=== PATIENT | female | born 1965 | race Hispanic/Latino ===

== ENCOUNTER 2020-11-17 01:31 | Emergency (ER) | payer BC ==
[2020-11-17] MEDS ORDERED: AZITHROMYCIN/NS 500 MG/250 ML 500 MG/250 ML BAG IV ONE (01:52)
[2020-11-17] MEDS ORDERED: dexAMETHasone 4 MG/ML VIAL IV ONE (01:53)
[2020-11-17] MEDS ORDERED: cefTRIAXone/NS 2 GM/100 ML 2 GM/100 ML BAG IV ONE (01:53)
--- NOTE | 2020-11-17 01:56 | Emergency Department Report ---
ED Shortness of Breath HPI - General Chief Complaint: Dyspnea/Respdistress Stated Complaint: DIFFICULTY BREATHING Time Seen by Provider: 11/17/20 01:40 Source: patient Mode of arrival: Ambulatory Limitations: No Limitations - History of Present Illness Initial Comments: Patient is a 55-year-old female that presents emergency room with complaints of shortness of breath and cough. Patient states her cough started 1 to 2 days ago. Patient states her shortness of breath started just prior to arrival. Patient states she was sleeping and she woke up short of breath. Patient states she does have a history of asthma, CHF or COPD. Patient states she has a past medical history of hypertension, hyperlipidemia and borderline diabetes. Patient states that her shortness of breath better with rest and worse with exertion. Patient denies fever. Patient states her cough is dry. Patient denies chills. Patient denies nausea and vomiting. Patient denies diarrhea. Patient states she is not vaccinated against COVID-19. Patient denies recent travel. Patient denies recent international travel. Patient denies exposure to the novel coronavirus. Patient denies sick contacts. Patient denies fever and chills. Patient denies loss of smell.. Patient denies diarrhea. Patient denies coming in contact with anybody with symptoms of the novel coronavirus. MD Complaint: shortness of breath, cough -: Sudden Consistency: constant Improves With: rest Worsens With: exertion Associated Symptoms: cough Treatments Prior to Arrival: none - Related Data Home Oxygen Therapy: No Home Medications Medication Instructions Recorded Confirmed Last Taken AtorvaSTATin [Lipitor] 40 mg PO QHS 11/17/20 11/17/20 Unknown Levothyroxine [Synthroid] 25 mcg PO QAM 11/17/20 11/17/20 Unknown Metoprolol [Lopressor] 25 mg PO BID 11/17/20 11/17/20 Unknown lisinopriL [Lisinopril] 10 mg PO QDAY 11/17/20 11/17/20 Unknown Allergies Allergy/AdvReac Type Severity Reaction Status Date / Time No Known Allergies Allergy Unverified 11/17/20 01:40 ED Review of Systems ROS: Stated complaint: DIFFICULTY BREATHING Other details as noted in HPI Constitutional: denies: chills, fever Eyes: denies: eye pain, eye discharge, vision change ENT: denies: ear pain, throat pain Respiratory: see HPI, cough, shortness of breath. denies: wheezing Cardiovascular: denies: chest pain, palpitations Endocrine: no symptoms reported Gastrointestinal: denies: abdominal pain, nausea, diarrhea Genitourinary: denies: urgency, dysuria, discharge Musculoskeletal: denies: back pain, joint swelling, arthralgia Skin: denies: rash, lesions Neurological: denies: headache, weakness, paresthesias Psychiatric: denies: anxiety, depression Hematological/Lymphatic: denies: easy bleeding, easy bruising ED Past Medical Hx - Past Medical History Previous Medical History?: Yes Hx Hypertension: Yes Additional medical history: Borderline diabetes, hyperlipidemia - Surgical History Past Surgical History?: Yes Additional Surgical History: appendectomy, thyroidectomy, back sx - Family History Family history: no significant - Social History Smoking Status: Never Smoker Substance Use Type: None - Medications Home Medications: Home Medications Medication Instructions Recorded Confirmed Last Taken Type AtorvaSTATin [Lipitor] 40 mg PO QHS 11/17/20 11/17/20 Unknown History Levothyroxine [Synthroid] 25 mcg PO QAM 11/17/20 11/17/20 Unknown History Metoprolol [Lopressor] 25 mg PO BID 11/17/20 11/17/20 Unknown History lisinopriL [Lisinopril] 10 mg PO QDAY 11/17/20 11/17/20 Unknown History ED Physical Exam - General Limitations: No Limitations General appearance: alert, in distress, obese - Head Head exam: Present: atraumatic, normocephalic - Eye Eye exam: Present: normal appearance - ENT ENT exam: Present: mucous membranes dry - Neck Neck exam: Present: normal inspection - Respiratory Respiratory exam: Present: respiratory distress, rhonchi, accessory muscle use, decreased breath sounds - Cardiovascular Cardiovascular Exam: Present: regular rate, normal rhythm. Absent: systolic murmur, diastolic murmur, rubs, gallop - GI/Abdominal GI/Abdominal exam: Present: soft, normal bowel sounds - Extremities Exam Extremities exam: Present: normal inspection - Back Exam Back exam: Present: normal inspection - Neurological Exam Neurological exam: Present: alert, oriented X3 - Psychiatric Psychiatric exam: Present: normal affect, normal mood - Skin Skin exam: Present: warm, dry, intact, normal color. Absent: rash ED Course Vital Signs 11/17/20 11/17/20 11/17/20 01:39 01:54 02:01 Temperature 98.6 F Pulse Rate 95 H 94 H Respiratory 32 H 19 Rate Blood Pressure 165/79 Blood Pressure 234/107 [Right] O2 Sat by Pulse 79 L 96 98 Oximetry 11/17/20 11/17/20 11/17/20 02:08 02:15 02:31 Temperature Pulse Rate 92 H 91 H 90 Respiratory 38 H 27 H 30 H Rate Blood Pressure 165/79 165/79 165/79 Blood Pressure [Right] O2 Sat by Pulse 98 98 98 Oximetry 11/17/20 11/17/20 02:45 03:01 Temperature Pulse Rate 92 H 86 Respiratory 21 27 H Rate Blood Pressure 165/79 117/58 Blood Pressure [Right] O2 Sat by Pulse 96 98 Oximetry - Reevaluation(s) Reevaluation #1: Initial evaluation done. Patient have increased work of breathing. Patient will be given Decadron, Rocephin and Zithromax. Patient is hypoxic. Patient will be placed on BiPAP. 11/17/20 01:55 Reevaluation #2: Patient on BiPAP. Patient saturations improved. Patient's work to breathe. 11/17/20 02:28 Reevaluation #3: I discussed all results with patient. I discussed plan of care with patient. Patient agrees with plan of care and admission. Patient to be admitted to the hospitalist service. 11/17/20 03:29 - Consultations Consultation #1: Hospitalist consulted for admission. Hospitalist to admit patient. 11/17/20 03:29 ED Medical Decision Making - Lab Data Result diagrams: 11/17/20 01:57 11/17/20 01:57 - Radiology Data Radiology results: report reviewed, image reviewed interpreted by me: Chest x-ray: Bilateral interstitial, atypical pneumonia, no pneumothorax, no foreign body, no osseous findings, CHEST 1 VIEW INDICATION: Dyspnea. COMPARISON: None FINDINGS: SUPPORT DEVICES: None. HEART: Within normal limits. LUNGS/PLEURA: Hazy diffuse interstitial disease with symmetry most likely representing at least a component of edema. No gross effusion. ADDITIONAL FINDINGS: None. IMPRESSION: 1. Pulmonary findings as above. - Medical Decision Making Patient is a 55-year-old female presents emergency room and cough. Patient unvaccinated. Patient had abnormal lung sounds on exam. Patient had a chest x-ray which shows atypical pneumonia. Patient given Decadron, Rocephin and Zithromax. Patient had labs done which were essentially unremarkable except for lactic acidosis. Patient after initial valuation, was placed on BiPAP. Patient responded well to BiPAP. Patient had increased work of breathing with her initial evaluation but the BiPAP proved that. Patient admitted to the hospital service for further evaluation and treatment. Critical care time documented due to the multiple reassessments, prolonged time at the bedside, interpretation of diagnostics and labs. - Differential Diagnosis Covid, PUI, pneumonia, SoB, respiratory failure Critical Care Time: Yes Critical care time in (mins) excluding proc time.: 35 Critical care attestation.: If time is entered above; I have spent that time in minutes in the direct care of this critically ill patient, excluding procedure time. Critical Care Time: 35 minutes ED Disposition Clinical Impression: Person under investigation for COVID-19, Cough, Respiratory distress, SOB (shortness of breath), Hyperglycemia, Lactic acid acidosis Pneumonia Qualifiers: Pneumonia type: due to unspecified organism Laterality: bilateral Lung location: unspecified part of lung Qualified Code(s): J18.9 - Pneumonia, unspecified organism Respiratory failure Qualifiers: Chronicity: acute Respiratory failure complication: hypoxia Qualified Code(s): J96.01 - Acute respiratory failure with hypoxia Disposition: 09 OP ADMIT IP TO THIS HOSP Is pt being admited?: Yes Does the pt Need Aspirin: No Condition: Critical Instructions: Bacterial Pneumonia (ED) Time of Disposition: 03:56
[2020-11-17 02:22] LABS: Basophils % (Auto) 0.5 % (0.0-1.8); Eosinophils % (Auto) 0.5 % (0.0-4.3); Hematocrit 40.7 % (30.3-42.9); Hemoglobin 13.8 gm/dl (10.1-14.3); Lymphocytes # (Auto) 1.7 K/mm3 (1.2-5.4); Lymphocytes % (Auto) 27.9 % (13.4-35.0); Mean Corpuscular HGB Conc 34 % (30-34); Mean Corpuscular Volume 86 fl (79-97); Monocytes # (Auto) 0.6 K/mm3 (0.0-0.8); Monocytes % (Auto) 10.6 % (0.0-7.3); Platelet Count 187 K/mm3 (140-440); Red Blood Count 4.74 M/mm3 (3.65-5.03)
[2020-11-17 02:37] LABS: INR 1.03 (0.87-1.13); Partial Thromboplastin Time 26.5 Sec. (24.2-36.6)
--- NOTE | 2020-11-17 02:37 | XRay Report ---
CHEST 1 VIEW INDICATION: Dyspnea. COMPARISON: None FINDINGS: SUPPORT DEVICES: None. HEART: Within normal limits. LUNGS/PLEURA: Hazy diffuse interstitial disease with symmetry most likely representing at least a com ponent of edema. No gross effusion. ADDITIONAL FINDINGS: None. IMPRESSION: 1. Pulmonary findings as above. Signer Name: Guillaume Stubbs MD Signed: 11/17/2020 2:32 AM Workstation Name: [id number]
[2020-11-17 02:43] LABS: Alanine Aminotransferase 37 units/L (7-56); Albumin 4.4 g/dL (3.9-5); BUN/Creatinine Ratio 17; Blood Urea Nitrogen 15 mg/dL (7-17); Calcium 8.9 mg/dL (8.4-10.2); Hemolysis Index 4
--- NOTE | 2020-11-17 04:12 | History and Physical Report ---
History of Present Illness Date of examination: 11/17/20 Date of admission: 11/17/20 Chief complaint: Shortness of breath History of present illness: This is a 55-year-old female who has past medical history of high blood pressure, hyperlipidemia, and borderline diabetes. She presented to the ED with chief complaint of shortness of breath and cough. She said that her she woke up with shortness of breath today. She denies Covid 19 vaccination. She says she does not believe in the vaccine and asked why she did not get the vaccine. She denies a history of COPD and asthma. She also denies alcohol use, tobacco use, and illicit drug use. Patient is on BiPAP in the ED oxygen saturation is greater than 92%. She said she is on medication for hypertension and cholesterol. I reviewed patient medication record and vital signs. Past History Past Medical History: diabetes, hypertension, hyperlipidemia, other Past Surgical History: No surgical history Social history: , lives with family Family history: no significant family history Medications and Allergies Allergies Allergy/AdvReac Type Severity Reaction Status Date / Time No Known Allergies Allergy Unverified 11/17/20 01:40 Home Medications Medication Instructions Recorded Confirmed Last Taken Type AtorvaSTATin [Lipitor] 40 mg PO QHS 11/17/20 11/17/20 Unknown History Levothyroxine [Synthroid] 25 mcg PO QAM 11/17/20 11/17/20 Unknown History Metoprolol [Lopressor] 25 mg PO BID 11/17/20 11/17/20 Unknown History lisinopriL [Lisinopril] 10 mg PO QDAY 11/17/20 11/17/20 Unknown History Review of Systems Constitutional: fatigue, weakness, malaise Ears, nose, mouth and throat: no epistaxis, no bleeding gums Cardiovascular: high blood pressure Gastrointestinal: no melena Rectal: no itching, no hemorrhoids Integumentary: no rash, no pruritis Neurological: no head injury Psychiatric: no suicidal ideation, no disorientation, no hallucinations Hematologic/Lymphatic: no easy bruising, no easy bleeding Allergic/Immunologic: no urticaria Exam - Constitutional Vitals: Temp Pulse Resp BP Pulse Ox 98.6 F 86 27 H 117/58 98 11/17/20 01:39 11/17/20 03:01 11/17/20 03:01 11/17/20 03:01 11/17/20 03:01 General appearance: Present: mild distress, well-nourished, obese - EENT Eyes: Present: PERRL ENT: hearing intact, clear oral mucosa - Neck Neck: Present: supple, normal ROM - Respiratory Respiratory effort: normal Respiratory: bilateral: CTA - Cardiovascular Heart Sounds: Present: S1 & S2. Absent: rub, click - Extremities Extremities: pulses symmetrical, No edema Peripheral Pulses: within normal limits - Abdominal General gastrointestinal: Present: soft, non-tender, non-distended, normal bowel sounds Female genitourinary: Present: normal - Integumentary Integumentary: Present: clear, warm, dry - Musculoskeletal Musculoskeletal: strength equal bilaterally, generalized weakness - Psychiatric Psychiatric: appropriate mood/affect, intact judgment & insight - Neurologic Neurologic: CNII-XII intact, moves all extremities - Allied Health Allied health notes reviewed: nursing Results - Labs CBC & Chem 7: 11/17/20 01:57 11/17/20 01:57 Labs: Abnormal lab results 11/17/20 11/17/20 11/17/20 Range/Units 01:57 01:57 01:57 Spink % (Auto) 10.6 H (0.0-7.3) % Carbon Dioxide 20 L (22-30) mmol/L Glucose 214 H (65-100) mg/dL Lactic Acid 3.50 H* (0.7-2.0) mmol/L Assessment and Plan - Patient Problems (1) Person under investigation for COVID-19 Status: Acute Plan to address problem: patient came with shortness of breath likely secondary to respiratory infection/COVID-19 Continue BiPAP, bronchodilator, systemic steroid ID and inlayer consulted Monitor inflammatory markers D-dimer, CRP, ferritin Encourage the use of incentive spirometer and proning position Ascorbic acid, zinc sulfate, and vitamin D Encourage ambulation when stable. (2) Pneumonia Status: Acute Qualifiers: Pneumonia type: due to unspecified organism Laterality: bilateral Lung location: unspecified part of lung Qualified Code(s): J18.9 - Pneumonia, unspecified organism Plan to address problem: Likely secondary to bacterial/Covid infection Empiric antibiotic ID and inlayer consult ABG and serial x-ray (3) Essential (primary) hypertension Status: Acute Plan to address problem: Monitor blood pressure Resume home antihypertensive As needed hydralazine (4) Hyperlipidemia Status: Acute Plan to address problem: Resume home statin (5) Acute respiratory failure with hypoxia Status: Acute Plan to address problem: Continue BiPAP, ABG and bronchodilators Electrical Appliance Preparer consulted (6) Lactic acid acidosis Status: Acute Plan to address problem: Trend lactic acid (7) DVT prophylaxis Status: Acute Plan to address problem: Subcutaneous level
[2020-11-17] MEDS ORDERED: SENNOSIDES 8.6 MG TAB PO PRN (04:24)
[2020-11-17] MEDS ORDERED: ALUM-MAG HYDROXIDE-SIMETHICONE 200-200-20MG/5ML ORAL LIQD 30 ML PO PRN (04:24)
[2020-11-17] MEDS ORDERED: MAGNESIUM HYDROXIDE (MOM) ORAL LIQD UDC PO PRN (04:24)
[2020-11-17] MEDS ORDERED: MORPHINE 4 MG/1 ML INJ IV PRN (04:24)
[2020-11-17] MEDS ORDERED: ONDANSETRON 4 MG/2 ML INJ IV PRN (04:24)
[2020-11-17] MEDS ORDERED: ACETAMINOPHEN 650 MG RECT SUPP PR PRN (04:24)
[2020-11-17] MEDS ORDERED: HYDROmorphone 1 MG/1 ML INJ IV PRN (04:24)
[2020-11-17] MEDS ORDERED: SODIUM CHLORIDE 0.9% 1000 ML 1,000 ML IV SCH (04:30)
[2020-11-17] MEDS ORDERED: cefTRIAXone/NS 1 GM/50 ML 1 GM/50 ML BAG IV SCH (05:00)
[2020-11-17] MEDS ORDERED: AZITHROMYCIN/NS 500 MG/250 ML 500 MG/250 ML BAG IV SCH ×2 (05:00→22:00)
[2020-11-17] MEDS ORDERED: LEVOTHYROXINE 25 MCG TAB PO SCH (06:00)
--- NOTE | 2020-11-17 08:07 | Progress Note ---
Assessment and Plan Assessment and plan: Severe sepsis. Patient meets criteria given the tachycardia, tachypnea, lactic acidosis and diagnosis of pneumonia. Suspected COVID-19. Bilateral pneumonia. Acute hypoxic respiratory failure. Etiology secondary to above. Hypertension. Hyperlipidemia. 11/17/2020. Follow-up Covid 19 PCR. Trend inflammatory markers. Encourage the use of incentive spirometer and proning position. ID and pulmonary consultation pending. Continue empiric antibiotics for now. Resume home antihypertensive medications. Resume statin. Continue BiPAP as clinically indicated. History Interval history: No new issues overnight Hospitalist Physical - Constitutional Vitals: Temp Pulse Resp BP Pulse Ox 98.6 F 65 20 110/65 99 11/17/20 01:39 11/17/20 07:01 11/17/20 07:01 11/17/20 07:01 11/17/20 07:01 General appearance: Present: mild distress, well-nourished, obese - EENT Eyes: Present: PERRL, EOM intact ENT: hearing intact, clear oral mucosa, dentition normal - Neck Neck: Present: supple, normal ROM - Respiratory Respiratory effort: normal Respiratory: bilateral: CTA - Cardiovascular Rhythm: regular Heart Sounds: Present: S1 & S2. Absent: gallop, rub - Extremities Extremities: no ischemia, No edema, Full ROM - Abdominal General gastrointestinal: soft, non-tender, non-distended, normal bowel sounds - Integumentary Integumentary: Present: clear, warm, dry - Neurologic Neurologic: CNII-XII intact, moves all extremities Results - Labs CBC & Chem 7: 11/17/20 01:57 11/17/20 01:57 Labs: Laboratory Last Values WBC 5.9 K/mm3 (4.5-11.0) 11/17/20 01:57 RBC 4.74 M/mm3 (3.65-5.03) 11/17/20 01:57 Hgb 13.8 gm/dl (10.1-14.3) 11/17/20 01:57 Hct 40.7 % (30.3-42.9) 11/17/20 01:57 MCV 86 fl (79-97) 11/17/20 01:57 MCH 29 pg (28-32) 11/17/20 01:57 MCHC 34 % (30-34) 11/17/20 01:57 RDW 15.0 % (13.2-15.2) 11/17/20 01:57 Plt Count 187 K/mm3 (140-440) 11/17/20 01:57 Lymph % (Auto) 27.9 % (13.4-35.0) 11/17/20 01:57 Travis % (Auto) 10.6 % (0.0-7.3) H 11/17/20 01:57 Eos % (Auto) 0.5 % (0.0-4.3) 11/17/20 01:57 Baso % (Auto) 0.5 % (0.0-1.8) 11/17/20 01:57 Lymph # (Auto) 1.7 K/mm3 (1.2-5.4) 11/17/20 01:57 Travis # (Auto) 0.6 K/mm3 (0.0-0.8) 11/17/20 01:57 Eos # (Auto) 0.0 K/mm3 (0.0-0.4) 11/17/20 01:57 Baso # (Auto) 0.0 K/mm3 (0.0-0.1) 11/17/20 01:57 Seg Neutrophils % 60.5 % (40.0-70.0) 11/17/20 01:57 Seg Neutrophils # 3.6 K/mm3 (1.8-7.7) 11/17/20 01:57 PT 14.0 Sec. (12.2-14.9) 11/17/20 01:57 INR 1.03 (0.87-1.13) 11/17/20 01:57 APTT 26.5 Sec. (24.2-36.6) 11/17/20 01:57 D-Dimer 492.52 ng/mlDDU (0-234) H 11/17/20 04:00 Sodium 137 mmol/L (137-145) 11/17/20 01:57 Potassium 3.8 mmol/L (3.6-5.0) 11/17/20 01:57 Chloride 99.2 mmol/L (98-107) 11/17/20 01:57 Carbon Dioxide 20 mmol/L (22-30) L 11/17/20 01:57 Anion Gap 22 mmol/L 11/17/20 01:57 BUN 15 mg/dL (7-17) 11/17/20 01:57 Creatinine 0.9 mg/dL (0.6-1.2) 11/17/20 01:57 Estimated GFR > 60 ml/min 11/17/20 01:57 BUN/Creatinine Ratio 17 % 11/17/20 01:57 Glucose 214 mg/dL (65-100) H 11/17/20 01:57 Hemoglobin A1c 6.2 % (4-6) H 11/17/20 01:57 Lactic Acid 2.70 mmol/L (0.7-2.0) H* 11/17/20 04:00 Calcium 8.9 mg/dL (8.4-10.2) 11/17/20 01:57 Ferritin 63.9 ng/mL (10.0-200.0) 11/17/20 04:00 Total Bilirubin 0.40 mg/dL (0.1-1.2) 11/17/20 01:57 AST 26 units/L (5-40) 11/17/20 01:57 ALT 37 units/L (7-56) 11/17/20 01:57 Alkaline Phosphatase 125 units/L (35-129) 11/17/20 01:57 Lactate Dehydrogenase 262 units/L (91-180) H 11/17/20 04:00 C-Reactive Protein 1.00 mg/dL (0.00-1.30) 11/17/20 04:00 Total Protein 6.9 g/dL (6.3-8.2) 11/17/20 01:57 Albumin 4.4 g/dL (3.9-5) 11/17/20 01:57 Albumin/Globulin Ratio 1.8 % 11/17/20 01:57 Active Medications - Current Medications Current Medications: Generic Name Dose Route Start Last Admin Trade Name Freq PRN Reason Stop Dose Admin Acetaminophen 650 mg 11/17/20 04:24 Acetaminophen 650 Mg Rect Supp LA Q4H PRN Pain MILD(1-3)/Fever >100.5/GOMEZ Al Hydrox/Mg Hydrox/Simethicone 30 ml 11/17/20 04:24 Alum-Mag Hydroxide-Simethicone [id number]/5ml Oral Liqd 30 Ml PO Q4H PRN Indigestion Ascorbic Acid 500 mg 11/17/20 10:00 Ascorbic Acid 500 Mg Tab PO QDAY [facility] Atorvastatin Calcium 40 mg 11/17/20 22:00 Atorvastatin 40 Mg Tab PO QHS [facility] Dexamethasone 6 mg 11/17/20 10:00 Dexamethasone 4 Mg/Ml Vial IV 11/26/20 10:01 DAILY [facility] Heparin Sodium (Porcine) 5,000 unit 11/17/20 10:00 Heparin 5,000 Unit/1 Ml Vial SUB-Q Q12HR [facility] Hydromorphone HCl 0.25 mg 11/17/20 04:24 Hydromorphone 1 Mg/1 Ml Inj IV Q3H PRN Pain, Moderate (4-6) Sodium Chloride 1,000 mls @ 42 mls/hr 11/17/20 04:30 11/17/20 05:57 Nacl 0.9% 1000 Ml IV 42 mls/hr DIRECT [facility] Administration Azithromycin 500 mg in 250 mls @ 250 mls/hr 11/17/20 22:00 Zithromax/Ns IV 11/20/20 22:59 QHS [facility] Ceftriaxone Sodium 2 gm in 100 mls @ 200 mls/hr 11/17/20 22:00 Rocephin/Ns 2 Gm/100 Ml IV 11/20/20 22:29 QHS [facility] Levothyroxine Sodium 25 mcg 11/17/20 06:00 11/17/20 05:56 Levothyroxine 25 Mcg Tab PO 25 mcg QAM@0600 [facility] Administration Lisinopril 10 mg 11/17/20 10:00 Lisinopril 10 Mg Tab PO QDAY [facility] Magnesium Hydroxide 30 ml 11/17/20 04:24 Magnesium Hydroxide (Mom) Oral Liqd Udc PO Q4H PRN Constipation Metoprolol Tartrate 25 mg 11/17/20 08:00 Metoprolol Tartrate 25 Mg Tab PO BID@0800,1700 [facility] Morphine Sulfate 4 mg 11/17/20 04:24 Morphine 4 Mg/1 Ml Inj IV Q4H PRN Pain , Severe (7-10) Ondansetron HCl 4 mg 11/17/20 04:24 Ondansetron 4 Mg/2 Ml Inj IV Q8H PRN Nausea And Vomiting Senna 8.6 mg 11/17/20 04:24 Sennosides 8.6 Mg Tab PO Q12HR PRN Constipation Zinc Sulfate 220 mg 11/17/20 10:00 Zinc Sulfate 220 Mg Cap PO QDAY [facility]
[2020-11-17] MEDS: METOPROLOL TARTRATE 25 MG TAB PO SCH ×2 (08:56→16:43)
--- NOTE | 2020-11-17 09:21 | Consultation ---
History of Present Illness Reason for consult: dyspnea History of present illness: This is apateint with hx of pneumonia who comes in sob. She reports that she was in [place] until yesterday when she became sob. She reports that she explored a cave yesterday and did well. She went home and later had sob which prompted her to come to er. She was in distress and hypoxic started on o2 and bipap with improvement. She is now on supplemental o2 doing well Past History Past Medical History: diabetes, hypertension, hyperlipidemia, other Past Surgical History: No surgical history Social history: , lives with family Family history: no significant family history Medications and Allergies Allergies Allergy/AdvReac Type Severity Reaction Status Date / Time No Known Allergies Allergy Unverified 11/17/20 01:40 Home Medications Medication Instructions Recorded Confirmed Last Taken Type AtorvaSTATin [Lipitor] 40 mg PO QHS 11/17/20 11/17/20 Unknown History Levothyroxine [Synthroid] 25 mcg PO QAM 11/17/20 11/17/20 Unknown History Metoprolol [Lopressor] 25 mg PO BID 11/17/20 11/17/20 Unknown History lisinopriL [Lisinopril] 10 mg PO QDAY 11/17/20 11/17/20 Unknown History Active Meds: Active Medications Acetaminophen (Acetaminophen 650 Mg Rect Supp) 650 mg TX Q4H PRN PRN Reason: Pain MILD(1-3)/Fever >100.5/GOMEZ Al Hydrox/Mg Hydrox/Simethicone (Alum-Mag Hydroxide-Simethicone 218-702-75yg/5ml Oral Liqd 30 Ml) 30 ml PO Q4H PRN PRN Reason: Indigestion Ascorbic Acid (Ascorbic Acid 500 Mg Tab) 500 mg PO QDAY FELIX Atorvastatin Calcium (Atorvastatin 40 Mg Tab) 40 mg PO QHS FELIX Dexamethasone (Dexamethasone 4 Mg/Ml Vial) 6 mg IV DAILY FELIX Stop: 11/26/20 10:01 Heparin Sodium (Porcine) (Heparin 5,000 Unit/1 Ml Vial) 5,000 unit SUB-Q Q12HR FELIX Hydromorphone HCl (Hydromorphone 1 Mg/1 Ml Inj) 0.25 mg IV Q3H PRN PRN Reason: Pain, Moderate (4-6) Sodium Chloride (Nacl 0.9% 1000 Ml) 1,000 mls @ 42 mls/hr IV DIRECT FELIX Last Admin: 11/17/20 05:57 Dose: 42 mls/hr Documented by: Azithromycin (Zithromax/Ns) 500 mg in 250 mls @ 250 mls/hr IV QHS [facility] Stop: 11/20/20 22:59 Ceftriaxone Sodium (Rocephin/Ns 2 Gm/100 Ml) 2 gm in 100 mls @ 200 mls/hr IV QHS [facility] Stop: 11/20/20 22:29 Levothyroxine Sodium (Levothyroxine 25 Mcg Tab) 25 mcg PO QAM@0600 [facility] Last Admin: 11/17/20 05:56 Dose: 25 mcg Documented by: Lisinopril (Lisinopril 10 Mg Tab) 10 mg PO QDAY [facility] Magnesium Hydroxide (Magnesium Hydroxide (Mom) Oral Liqd Udc) 30 ml PO Q4H PRN PRN Reason: Constipation Metoprolol Tartrate (Metoprolol Tartrate 25 Mg Tab) 25 mg PO BID@0800,1700 [facility] Morphine Sulfate (Morphine 4 Mg/1 Ml Inj) 4 mg IV Q4H PRN PRN Reason: Pain , Severe (7-10) Ondansetron HCl (Ondansetron 4 Mg/2 Ml Inj) 4 mg IV Q8H PRN PRN Reason: Nausea And Vomiting Senna (Sennosides 8.6 Mg Tab) 8.6 mg PO Q12HR PRN PRN Reason: Constipation Zinc Sulfate (Zinc Sulfate 220 Mg Cap) 220 mg PO QDAY [facility] Physical Examination Vital signs: Vital Signs Temp Pulse Resp BP Pulse Ox 98.6 F 95 H 32 H 234/107 79 L 11/17/20 01:39 11/17/20 01:39 11/17/20 01:39 11/17/20 01:39 11/17/20 01:39 General appearance: no acute distress, alert Eyes: non-icteric ENT: oropharynx moist Neck: supple Effort: normal Ascultation: Bilateral: diminished breath sounds Cardiovascular: regular rate and rhythm Gastrointestinal: normoactive bowel sounds, soft, non-tender, other (obese) Integumentary: normal Extremities: no cyanosis Musculoskeletal: no deformities Gait: normal gait normal mental status mood appropriate, affect normal Results - Laboratory Findings CBC and BMP: 11/17/20 01:57 11/17/20 01:57 PT/INR, D-dimer PT 14.0 Sec. (12.2-14.9) 11/17/20 01:57 INR 1.03 (0.87-1.13) 11/17/20 01:57 D-Dimer 492.52 ng/mlDDU (0-234) H 11/17/20 04:00 Abnormal lab findings: Abnormal Labs 11/17/20 11/17/20 11/17/20 01:57 01:57 01:57 [facility] % (Auto) 10.6 H D-Dimer Carbon Dioxide 20 L Glucose 214 H Hemoglobin A1c Lactic Acid 3.50 H* Lactate Dehydrogenase 11/17/20 11/17/20 11/17/20 01:57 04:00 04:00 [facility] % (Auto) D-Dimer 492.52 H Carbon Dioxide Glucose Hemoglobin A1c 6.2 H Lactic Acid 2.70 H* Lactate Dehydrogenase 11/17/20 04:00 [facility] % (Auto) D-Dimer Carbon Dioxide Glucose Hemoglobin A1c Lactic Acid Lactate Dehydrogenase 262 H - Diagnostic Findings Chest x-ray: report reviewed Assessment and Plan - Patient Problems (1) Acute respiratory failure with hypoxia Current Visit: No Status: Acute (2) Cough Current Visit: No Status: Acute (3) Essential (primary) hypertension Current Visit: No Status: Acute (4) Lactic acid acidosis Current Visit: No Status: Acute (5) Person under investigation for COVID-19 Current Visit: No Status: Acute (6) Respiratory distress Current Visit: No Status: Acute (7) SOB (shortness of breath) Current Visit: No Status: Acute
[2020-11-17] MEDS ORDERED: dexAMETHasone 4 MG/ML VIAL IV SCH (10:00)
[2020-11-17] MEDS ORDERED: ASCORBIC ACID 500 MG TAB PO SCH (10:00)
[2020-11-17] MEDS ORDERED: ZINC SULFATE 220 MG CAP PO SCH (10:00)
[2020-11-17] MEDS ORDERED: LISINOPRIL 10 MG TAB PO SCH (10:00)
[2020-11-17] MEDS ORDERED: HEPARIN 5,000 UNIT/1 ML VIAL SUB-Q SCH (10:00)
[2020-11-17 18:55] VITALS: BP 140/59
[2020-11-17] MEDS ORDERED: cefTRIAXone/NS 2 GM/100 ML 2 GM/100 ML BAG IV SCH (22:00)
--- NOTE | 2020-11-29 06:36 | Discharge Summary ---
Providers - Providers Date of Admission: 11/17/20 Date of discharge: 11/17/20 11/17/20 04:24 Consult to Physician [CONS] Routine Comment: Consulting Provider: [facility] Physician Instructions: Reason For Exam: pui 11/17/20 04:37 Consult to Physician [CONS] Routine Comment: Consulting Provider: SUE CASTILLO Physician Instructions: Reason For Exam: Acute respiratory failure with hypoxia 11/17/20 08:07 Consult to Physician [CONS] Routine Comment: Consulting Provider: AJ OLSON Physician Instructions: Reason For Exam: susp covid Primary care physician: FURNACE CHARGER Hospitalization Reason for admission: dyspnea Condition: Critical Hospital course: This is a 55-year-old female with past medical history of high blood pressure, hyperlipidemia, and borderline diabetes who presented to the ED with chief complaint of shortness of breath and cough. Pt. denied Covid 19 vaccination. She says she does not believe in the vaccine and asked why she did not get the vaccine. She denies a history of COPD and asthma. She also denies alcohol use, tobacco use, and illicit drug use. The patient was admitted with diagnosis of severe sepsis, bilateral pneumonia, COVID-19 suspected, acute hypoxic respiratory failure, hyperlipidemia and hypertension. In the emergency department, patient required BiPAP with oxygen saturation greater than 92%. Plans during the hospitalization included Follow-up Covid 19 PCR. Trend inflammatory markers. Encourage the use of incentive spirometer and proning position. ID and pulmonary consultation pending. Continue empiric antibiotics for now. Resume home antihypertensive medications. Resume statin. Continue BiPAP as clinically indicated. Unfortunately after admission patient opted to leave AMA. Nurse explained risks of leaving including and spread of covid. Pt voiced understanding and Dr. Rizvi notified. Pt agreed to sign AMA form. Dedicated discharge time 32 minutes Disposition: LEFT AGAINST MEDICAL ADVICE Final Discharge Diagnosis (Prints w/discharge instructions): Severe sepsis, suspected COVID-19, bilateral pneumonia, acute hypoxic respiratory failure, hypertension, hyperlipidemia Core Measure Documentation - Palliative Care Palliative Care/ Comfort Measures: Not Applicable - Core Measures Any of the following diagnoses?: none Exam - Constitutional Vitals: Temp Pulse Resp BP Pulse Ox 98.6 F 60 20 140/59 99 11/17/20 01:39 11/17/20 18:31 11/17/20 18:31 11/17/20 18:31 11/17/20 18:31 Plan Follow up with: PRIMARY MD THERON [Primary Care Provider] - 7 Days
== END 2020-11-17 20:01 | disposition admitted as inpatient to this hospital (09) ==
LOC: ED 01:31 → UNDOADMOB 04:24 → 3A 04:24
DX: J96.01 Acute respiratory failure with hypoxia (principal); Z20.822 Contact with and (suspected) exposure to COVID-19; R05 Cough; E87.2 Acidosis; J18.9 Pneumonia, unspecified organism; I10 Essential (primary) hypertension; E78.5 Hyperlipidemia, unspecified; E11.8 Type 2 diabetes mellitus with unspecified complications; Z98.890 Other specified postprocedural states
CPT/HCPCS: 36415; 71045; 80053; 82140; 82728; 83036; 83615; 84145; 85025; 85379; 85610; 85730; 86140; 96361; 96365; 96366; 96368; 96372; 96375; 96376; 99291; J0456; J0696; J1100; J1644; J7030; U0003